=== PATIENT | male | born 1990 | race Caucasian/White ===

== ENCOUNTER 2021-03-05 16:00 | Outpatient (CLI) | payer OTHER ==
[~2021-03-05] VITALS: Ht 182.9 cm; Wt 81.8 kg
[~2021-03-05 16:00] MED LIST: VEDOLIZUMAB 300 MG in NS 250 ML IV ONE
[2021-03-05 16:20] VITALS: BP 143/73
[2021-03-05 17:25] VITALS: BP 139/67
== END 2021-03-05 17:25 | disposition home or self-care (01) ==
LOC: M INFU 16:00
PROVIDERS: ATTEND Nurse Practitioner Family
DX: K51.90 Ulcerative colitis, unspecified, without complications (principal); Z88.8 Allergy status to other drugs, medicaments and biological substances
CPT/HCPCS: 96365; J3380

== ENCOUNTER 2021-05-09 15:45 | Outpatient (CLI) | payer OTHER ==
[2021-05-09] MEDS ORDERED: VEDOLIZUMAB 300 MG in NS 250 ML IV ONE (16:00)
[2021-05-09 16:04] VITALS: BP 137/72
[2021-05-09 16:50] VITALS: BP 132/58
== END 2021-05-09 17:00 | disposition home or self-care (01) ==
LOC: M INFU 15:45
PROVIDERS: ATTEND Nurse Practitioner Family
DX: K51.90 Ulcerative colitis, unspecified, without complications (principal); Z88.8 Allergy status to other drugs, medicaments and biological substances
CPT/HCPCS: 96365; J3380

== ENCOUNTER 2021-07-02 16:02 | Outpatient (CLI) | payer OTHER ==
[~2021-07-02] VITALS: Ht 182.9 cm; Wt 84.0 kg
[2021-07-02 16:00] VITALS: BP 143/70
[2021-07-02 17:20] VITALS: BP 124/66
== END 2021-07-02 17:20 | disposition home or self-care (01) ==
LOC: M INFU 16:02
PROVIDERS: ATTEND Nurse Practitioner Family
DX: K51.90 Ulcerative colitis, unspecified, without complications (principal); Z88.8 Allergy status to other drugs, medicaments and biological substances
CPT/HCPCS: 96365; J3380

== ENCOUNTER 2021-08-27 15:55 | Outpatient (CLI) | payer OTHER ==
[~2021-08-27] VITALS: Ht 182.9 cm; Wt 84.0 kg
[2021-08-27] MEDS ORDERED: VEDOLIZUMAB 300 MG in NS 250 ML IV ONE (16:00)
[2021-08-27 16:21] VITALS: BP 116/59
[2021-08-27 17:00] VITALS: BP 121/60
== END 2021-08-27 17:00 | disposition home or self-care (01) ==
LOC: M INFU 15:55
PROVIDERS: ATTEND Nurse Practitioner Family
DX: K50.90 Crohn's disease, unspecified, without complications (principal); Z88.8 Allergy status to other drugs, medicaments and biological substances
CPT/HCPCS: 96365; J3380

== ENCOUNTER 2021-10-22 14:00 | Outpatient (CLI) | payer OTHER ==
[~2021-10-22] VITALS: Ht 182.9 cm; Wt 84.0 kg
[2021-10-22 14:25] VITALS: BP 126/68
[2021-10-22] MEDS ORDERED: VEDOLIZUMAB 300 MG in NS 250 ML IV ONE (14:45)
[2021-10-22 15:40] VITALS: BP 121/80
== END 2021-10-22 15:40 | disposition home or self-care (01) ==
LOC: M INFU 14:00
PROVIDERS: ATTEND Nurse Practitioner Family
DX: K51.90 Ulcerative colitis, unspecified, without complications (principal); Z88.8 Allergy status to other drugs, medicaments and biological substances
CPT/HCPCS: 96365; J3380

== ENCOUNTER 2021-12-17 14:15 | Outpatient (CLI) | payer OTHER ==
[2021-12-17 16:28] VITALS: BP 134/70
[2021-12-17] MEDS ORDERED: VEDOLIZUMAB 300 MG in NS 250 ML IV ONE (16:30)
[2021-12-17 17:29] VITALS: BP 138/69
== END 2021-12-17 17:30 | disposition home or self-care (01) ==
LOC: M INFU 14:15
PROVIDERS: ATTEND Nurse Practitioner Family
DX: K51.90 Ulcerative colitis, unspecified, without complications (principal); Z88.8 Allergy status to other drugs, medicaments and biological substances
CPT/HCPCS: 96365; J3380

== ENCOUNTER 2022-02-11 16:15 | Outpatient (CLI) | payer OTHER ==
[~2022-02-11] VITALS: Ht 185.4 cm; Wt 84.0 kg
[2022-02-11 16:15] VITALS: BP 158/93
[2022-02-11] MEDS ORDERED: VEDOLIZUMAB 300 MG in NS 250 ML IV ONE (16:30)
[2022-02-11 17:20] VITALS: BP 127/63
== END 2022-02-11 17:25 | disposition home or self-care (01) ==
LOC: M INFU 16:15
PROVIDERS: ATTEND Nurse Practitioner Family
DX: K51.90 Ulcerative colitis, unspecified, without complications (principal); Z88.8 Allergy status to other drugs, medicaments and biological substances
CPT/HCPCS: 96365; J3380

== ENCOUNTER 2022-04-08 16:15 | Outpatient (CLI) | payer OTHER ==
[~2022-04-08] VITALS: Ht 182.9 cm; Wt 82.5 kg
[2022-04-08 16:05] VITALS: BP 138/68
[2022-04-08] MEDS ORDERED: VEDOLIZUMAB 300 MG in NS 250 ML IV ONE (16:30)
[2022-04-08 17:00] VITALS: BP 128/69
== END 2022-04-08 17:00 | disposition home or self-care (01) ==
LOC: M INFU 16:15
PROVIDERS: ATTEND Internal Medicine
DX: K51.90 Ulcerative colitis, unspecified, without complications (principal); Z88.8 Allergy status to other drugs, medicaments and biological substances
CPT/HCPCS: 96365; J3380

== ENCOUNTER → 2022-06-03 | Outpatient (CLI) | payer OTHER ==
[~2022-06-03] VITALS: Ht 180.3 cm; Wt 84.0 kg
[2022-06-03 17:15] VITALS: BP 145/70
[2022-06-03 18:44] VITALS: BP 138/68
== END ==
LOC: M INFU 17:11
PROVIDERS: ATTEND Internal Medicine
DX: K51.90 Ulcerative colitis, unspecified, without complications (principal); Z88.8 Allergy status to other drugs, medicaments and biological substances
CPT/HCPCS: 96365; J3380

== ENCOUNTER 2022-07-29 16:30 | Outpatient (CLI) | payer OTHER ==
[~2022-07-29] VITALS: Ht 180.3 cm; Wt 84.0 kg
[2022-07-29 16:30] VITALS: BP 134/77
[2022-07-29 17:50] VITALS: BP 114/75
== END 2022-07-29 17:55 | disposition home or self-care (01) ==
LOC: M INFU 16:30
PROVIDERS: ATTEND Internal Medicine
DX: K51.90 Ulcerative colitis, unspecified, without complications (principal); Z88.8 Allergy status to other drugs, medicaments and biological substances
CPT/HCPCS: 96365; J3380

== ENCOUNTER → 2022-10-07 | Outpatient (CLI) | payer OTHER ==
[~2022-10-07] VITALS: Ht 180.3 cm; Wt 87.2 kg
[~2022-10-07] MED LIST changes: +ALBUTEROL SULFATE 2.5MG/0.5ML INH NEB SOLN INH PRN; +EPINEPHrine INJ 1 MG/ML 1ML AMP IM PRN; +NS 1,000 ML IV SCH; +diphenhydrAMINE 50MG/ML VIAL IV PRN; +methylPREDNISolone 125MG 2ML VIAL IV PRN
[2022-10-07 08:40] VITALS: BP 129/65; O2SAT 96
[2022-10-07 09:55] VITALS: BP 115/45; O2SAT 97
== END ==
LOC: M INFU 08:40
PROVIDERS: ATTEND Specialist
DX: K51.90 Ulcerative colitis, unspecified, without complications (principal); Z88.8 Allergy status to other drugs, medicaments and biological substances
CPT/HCPCS: 96365; J3380

== ENCOUNTER 2023-01-28 15:05 | Outpatient (CLI) | payer OTHER ==
[~2023-01-28] VITALS: Ht 180.3 cm; Wt 87.0 kg
[2023-01-28 15:14] VITALS: BP 138/73; O2SAT 96
[2023-01-28] MEDS ORDERED: NS 1,000 ML IV SCH (15:30)
[2023-01-28] MEDS ORDERED: VEDOLIZUMAB 300 MG in NS 250 ML IV ONE (15:30)
[2023-01-28 16:15] VITALS: BP 125/71; O2SAT 97
== END 2023-01-28 16:15 ==
LOC: M INFU 15:05
PROVIDERS: ATTEND Specialist
DX: K51.90 Ulcerative colitis, unspecified, without complications (principal); Z88.8 Allergy status to other drugs, medicaments and biological substances
CPT/HCPCS: 96365; J3380

== ENCOUNTER 2023-03-24 16:51 | Outpatient (CLI) | payer OTHER ==
[~2023-03-24 16:51] MED LIST changes: -VEDOLIZUMAB 300 MG in NS 250 ML IV ONE
[2023-03-24] MEDS ORDERED: VEDOLIZUMAB 300 MG in NS 250 ML IV ONE (17:00)
[2023-03-24 17:39] VITALS: BP 131/59; O2SAT 98
[2023-03-24 17:57] VITALS: BP 122/63; O2SAT 98
== END 2023-03-24 18:00 ==
LOC: M INFU 16:51
PROVIDERS: ATTEND Specialist
DX: K51.90 Ulcerative colitis, unspecified, without complications (principal); Z88.8 Allergy status to other drugs, medicaments and biological substances
CPT/HCPCS: 96365; J3380

== ENCOUNTER 2023-05-26 14:25 | Outpatient (CLI) | payer OTHER ==
[~2023-05-26] VITALS: Ht 182.9 cm; Wt 84.0 kg
[~2023-05-26 14:25] MED LIST changes: -NS 1,000 ML IV SCH
[2023-05-26] MEDS ORDERED: NS 1,000 ML IV SCH (14:30)
[2023-05-26 14:33] VITALS: BP 136/71; TEMP 97.8; O2SAT 100
[2023-05-26] MEDS: VEDOLIZUMAB 300 MG in NS 250 ML IV ONE (14:59)
[2023-05-26 15:41] VITALS: BP 143/80; TEMP 97.3; O2SAT 100
== END 2023-05-26 15:40 ==
LOC: M INFU 14:25
PROVIDERS: ATTEND Specialist
DX: K51.919 Ulcerative colitis, unspecified with unspecified complications (principal); Z88.8 Allergy status to other drugs, medicaments and biological substances
CPT/HCPCS: 96365; J3380

== ENCOUNTER 2023-07-29 12:33 | Outpatient (CLI) | payer OTHER ==
[~2023-07-29 12:33] MED LIST changes: +NS 1,000 ML IV SCH
[2023-07-29] MEDS: VEDOLIZUMAB 300 MG in NS 250 ML IV ONE (13:08)
[2023-07-29 13:10] VITALS: BP 120/55; O2SAT 97
[2023-07-29 13:45] VITALS: BP 127/57; O2SAT 97
== END 2023-07-29 13:50 | disposition home or self-care (01) ==
LOC: M INFU 12:33
PROVIDERS: ATTEND Specialist
DX: K51.919 Ulcerative colitis, unspecified with unspecified complications (principal); Z88.8 Allergy status to other drugs, medicaments and biological substances
CPT/HCPCS: 96365; J3380

== ENCOUNTER 2023-09-23 15:05 | Outpatient (CLI) | payer OTHER ==
[~2023-09-23] VITALS: Ht 182.9 cm; Wt 84.1 kg
[2023-09-23 15:10] VITALS: BP 123/61; O2SAT 99
[2023-09-23] MEDS: VEDOLIZUMAB 300 MG in NS 250 ML IV ONE (15:29)
[2023-09-23 16:05] VITALS: BP 119/70; O2SAT 100
== END 2023-09-23 16:10 ==
LOC: M INFU 15:05
PROVIDERS: ATTEND Specialist
DX: K51.919 Ulcerative colitis, unspecified with unspecified complications (principal); Z88.8 Allergy status to other drugs, medicaments and biological substances
CPT/HCPCS: 96365; J3380

== ENCOUNTER 2023-11-11 14:05 | Outpatient (CLI) | payer OTHER ==
[2023-11-11 13:05] VITALS: BP 128/66; O2SAT 98
[2023-11-11 13:06] VITALS: BP 115/72; O2SAT 98
[2023-11-11] MEDS: VEDOLIZUMAB 300 MG in NS 250 ML IV ONE (14:28)
== END 2023-11-11 15:14 ==
LOC: M INFU 14:05
PROVIDERS: ATTEND Specialist
DX: K51.919 Ulcerative colitis, unspecified with unspecified complications (principal); Z88.8 Allergy status to other drugs, medicaments and biological substances
CPT/HCPCS: 96365; J3380

== ENCOUNTER 2024-01-06 14:00 | Outpatient (CLI) | payer OTHER ==
[~2024-01-06] VITALS: Ht 182.9 cm; Wt 81.8 kg
[2024-01-06] MEDS: VEDOLIZUMAB 300 MG in NS 250 ML IV ONE (15:05)
[2024-01-06 15:45] VITALS: BP 124/66; O2SAT 98
== END 2024-01-06 15:46 | disposition home or self-care (01) ==
LOC: M INFU 14:00
PROVIDERS: ATTEND Specialist
DX: K51.919 Ulcerative colitis, unspecified with unspecified complications (principal); Z88.8 Allergy status to other drugs, medicaments and biological substances
CPT/HCPCS: 96365; J3380

== ENCOUNTER 2024-03-02 14:12 | Outpatient (CLI) | payer OTHER ==
[~2024-03-02] VITALS: Ht 182.9 cm; Wt 80.0 kg
[~2024-03-02 14:12] MED LIST changes: -NS 1,000 ML IV SCH
[2024-03-02 14:18] VITALS: BP 138/91; O2SAT 98
[2024-03-02] MEDS ORDERED: NS (Normal Saline) 0.9% 1,000 ML IV SCH (14:30)
[2024-03-02] MEDS: VEDOLIZUMAB 300 MG in NS 250 ML IV ONE (14:39)
[2024-03-02 15:17] VITALS: BP 119/55; O2SAT 98
== END 2024-03-02 14:15 | disposition home or self-care (01) ==
LOC: M INFU 14:12
PROVIDERS: ATTEND Specialist
DX: K51.919 Ulcerative colitis, unspecified with unspecified complications (principal); Z88.8 Allergy status to other drugs, medicaments and biological substances
CPT/HCPCS: 96365; J3380

== ENCOUNTER 2024-04-27 14:35 | Outpatient (CLI) | payer OTHER ==
[~2024-04-27] VITALS: Ht 182.9 cm; Wt 80.0 kg
[~2024-04-27 14:35] MED LIST changes: +NS (Normal Saline) 0.9% 1,000 ML IV SCH
[2024-04-27 14:55] VITALS: BP 135/75; O2SAT 97
[2024-04-27] MEDS: VEDOLIZUMAB 300 MG in NS 250 ML IV ONE (15:36)
[2024-04-27 16:29] VITALS: BP 127/73; O2SAT 98
== END 2024-04-27 16:30 ==
LOC: M INFU 14:35
PROVIDERS: ATTEND Specialist
DX: K51.90 Ulcerative colitis, unspecified, without complications (principal); Z88.8 Allergy status to other drugs, medicaments and biological substances
CPT/HCPCS: 96365; J3380

== ENCOUNTER 2024-06-22 14:41 | Outpatient (CLI) | payer OTHER ==
[~2024-06-22] VITALS: Ht 182.9 cm; Wt 84.0 kg
[~2024-06-22 14:41] MED LIST changes: +ALBUTEROL SULFATE 2.5MG/0.5ML INH CONCENTRATE NEB SOLN INH PRN; -ALBUTEROL SULFATE 2.5MG/0.5ML INH NEB SOLN INH PRN
[2024-06-22 14:45] VITALS: BP 136/61; O2SAT 97
[2024-06-22] MEDS: VEDOLIZUMAB 300 MG in NS 250 ML IV ONE (15:13)
[2024-06-22 15:48] VITALS: BP 138/87; O2SAT 100
== END 2024-06-22 15:53 ==
LOC: M INFU 14:41
PROVIDERS: ATTEND Specialist
DX: K51.919 Ulcerative colitis, unspecified with unspecified complications (principal); Z88.8 Allergy status to other drugs, medicaments and biological substances
CPT/HCPCS: 96365; J3380

== ENCOUNTER 2024-10-14 12:05 | Outpatient (CLI) | payer OTHER ==
[~2024-10-14] VITALS: Ht 182.9 cm; Wt 80.0 kg
[~2024-10-14 12:05] MED LIST changes: +ALBUTEROL SULFATE 2.5 MG/0.5 ML INH CONCENTRATE NEB SOLN INH PRN; -ALBUTEROL SULFATE 2.5MG/0.5ML INH CONCENTRATE NEB SOLN INH PRN; +diphenhydrAMINE 50 MG/ML VIAL IV PRN; -diphenhydrAMINE 50MG/ML VIAL IV PRN; -methylPREDNISolone 125MG 2ML VIAL IV PRN
[2024-10-14] MEDS: VEDOLIZUMAB 300 MG in NS 250 ML IV ONE (12:49)
[2024-10-14 13:25] VITALS: BP 178/95; O2SAT 96
[2024-10-14 13:30] VITALS: BP 132/72; O2SAT 99
== END 2024-10-14 13:40 ==
LOC: M INFU 12:05
PROVIDERS: ATTEND Specialist
DX: K51.90 Ulcerative colitis, unspecified, without complications (principal); Z88.8 Allergy status to other drugs, medicaments and biological substances
CPT/HCPCS: 96365; J3380

== ENCOUNTER 2024-12-09 16:04 | Outpatient (CLI) | payer OTHER ==
[~2024-12-09] VITALS: Ht 182.9 cm; Wt 84.1 kg
[~2024-12-09 16:04] MED LIST changes: -NS (Normal Saline) 0.9% 1,000 ML IV SCH
[2024-12-09 16:25] VITALS: BP 109/63; O2SAT 98
[2024-12-09] MEDS ORDERED: NS (Normal Saline) 0.9% 1,000 ML IV SCH (16:30)
[2024-12-09] MEDS: VEDOLIZUMAB 300 MG in NS 250 ML IV ONE (16:50)
[2024-12-09 17:20] VITALS: BP 133/71; O2SAT 98
== END 2024-12-09 17:25 | disposition home or self-care (01) ==
LOC: M INFU 16:04
PROVIDERS: ATTEND Specialist
DX: K51.90 Ulcerative colitis, unspecified, without complications (principal); Z88.8 Allergy status to other drugs, medicaments and biological substances
CPT/HCPCS: 96365; J3380